=== PATIENT | female | born 1965 | race Caucasian/White ===

== ENCOUNTER 2024-09-27 13:01 | Emergency (ER) | payer BC ==
[2024-09-27] MEDS ORDERED: Sodium Chloride 0.9% 10 ML Syringe FLUSH PRN (13:38)
[2024-09-27 14:07] LABS: MEAN PLATELET VOLUME 9.5 fL (6.0-10.0); PLATELET COUNT,PLT 294.0 K/uL (150-500); RED BLOOD CELL COUNT 4.6 M/uL (3.80-5.80); RED CELL DISTRIBUTION WIDTH 12.6 % (11.0-16.0); WHITE BLOOD CELL COUNT,WBC 7.8 K/uL (4.0-11.0)
[2024-09-27 14:11] LABS: APPEARANCE,URINE CLEAR (CLEAR); GLUCOSE,URINE NEGATIVE (NEGATIVE); OCCULT BLOOD,URINE NEGATIVE (NEGATIVE)
[2024-09-27] MEDS: LORazepam 2 MG/ML SDV IVPUSH ONE (14:11)
[2024-09-27] MEDS: Ondansetron 4 MG/2 ML SDV IVPUSH ONE (14:13)
[2024-09-27] MEDS: Ketamine 200 MG/20 ML MDV IV ONE (14:21)
[2024-09-27 14:36] LABS: A/G RATIO 1.0 (0.8-2.0); ALANINE AMINOTRANSFERASE,ALT 21.0 U/L (12-78); ASPARTATE AMNIOTRANSFERASE,AST 18.0 U/L (15-37); BILIRUBIN TOTAL 1.3 mg/dL (0.0-1.0); BLOOD UREA NITROGEN,BUN 16.0 mg/dL (8-26); CARBON DIOXIDE,CO2 29.1 mmol/L (21.0-32.0); CHLORIDE,CL 105.0 mmol/L (98-107); CREATININE 0.69 mg/dL (0.55-1.02); EST CRCL DRUG DOSING (CG) 79.59 mL/min; ESTIMATED GFR 99.0 mL/min (>60); GLUCOSE RANDOM 104.0 mg/dL (74-100); POTASSIUM,K 4.1 mmol/L (3.5-5.1); PROTEIN TOTAL,TP 7.4 g/dL (6.4-8.2); SODIUM,NA 140.0 mmol/L (136-145); TSH ULTRASENSITIVE 1.57 uIU/mL (0.358-3.740)
[2024-09-30 02:25] LABS: VITAMIN D,1,25-DIHYDROXY 71.2 pg/mL (19.9-79.3)
== END 2024-09-27 17:50 | disposition home or self-care (01) ==
LOC: LB.ED 13:01
DX: F51.02 Adjustment insomnia (principal); F32.A Depression, unspecified; Z79.899 Other long term (current) drug therapy
CPT/HCPCS: 36415; 80053; 81003; 82652; 83735; 84443; 85027; 93005; 96365; 96375; 99284; 99284-25; J2060; J2405; J3490; J7030

== ENCOUNTER 2024-10-10 12:08 | Emergency (ER) | payer BC ==
[2024-10-10 12:46] LABS: APPEARANCE,URINE CLOUDY (CLEAR); GLUCOSE,URINE NEGATIVE (NEGATIVE); OCCULT BLOOD,URINE LARGE (NEGATIVE)
== END 2024-10-10 13:30 | disposition home or self-care (01) ==
LOC: LB.ED 12:08
DX: N39.0 Urinary tract infection, site not specified (principal); Z90.49 Acquired absence of other specified parts of digestive tract; Z90.710 Acquired absence of both cervix and uterus; Z79.899 Other long term (current) drug therapy
CPT/HCPCS: 81001; 99284; A9270-GY